=== PATIENT | female | born 1955 ===

== ENCOUNTER → 2023-05-29 08:48 | Outpatient (POV) | payer SELFPAY | PROVIDERS: Visit Provider Dermatology | DX: Z00.00 Encounter for general adult medical examination without abnormal findings (principal) ==

== ENCOUNTER → 2023-09-04 08:32 | Outpatient (POV) | payer SELFPAY | PROVIDERS: PCP Family Medicine; Visit Provider Dermatology | DX: Z00.00 Encounter for general adult medical examination without abnormal findings (principal) ==

== ENCOUNTER 2024-02-26 09:03 | Outpatient (POV) | payer SELFPAY | END 2024-02-26 23:59 | disposition home or self-care (01) | LOC: SC 09:04 | PROVIDERS: PCP Family Medicine; Visit Provider Dermatology | DX: Z00.00 Encounter for general adult medical examination without abnormal findings (principal) ==